=== PATIENT | male | born 1955 | race Caucasian/White ===

== ENCOUNTER → 2016-07-13 | Outpatient (CLI) | payer OTHER ==
[2016-07-20 00:31] LABS: GLIADIN DEAMIDATED IgA AB 94 UNITS (<20); GLIADIN DEAMIDATED IgG AB 14 UNITS (<20); IGA SERUM 151 mg/dL (81-463); TIS TRANS IGA 1 U/mL (<4)
== END | disposition home or self-care (01) ==
LOC: C.LAB 12:10
PROVIDERS: ATTEND Family Medicine
DX: R73.09 Other abnormal glucose (principal)